=== PATIENT | male | born 1955 | race Caucasian/White ===

== ENCOUNTER 2016-05-16 08:19 | Day surgery (SDC) | payer BC ==
[~2016-05-16 08:19] MED LIST: ALPRAZOLAM1 MG PO; FISH OIL600 MG PO; LOVASTATIN10 M1 PO; MULTIPLE VITAMIN PO; VITAMIN B COMPLE1 PO; VITAMIN D-31000 UNIT PO
--- NOTE | 2016-05-16 12:28 | Provider's Discharge Care Plan ---
Problem, Goal, Plan Problem List 1. Acute abdominal pain 2. Diverticulosis
--- NOTE | 2016-05-16 12:28 | Provider's Discharge Care Plan ---
Problem, Goal, Plan Problem List 1. Acute abdominal pain 2. Diverticulosis
[2016-05-16 13:05] VITALS: BP 128/88
--- NOTE | 2016-05-28 09:46 | OPERATIVE REPORT ---
DATE OF SURGERY: 05/16/2016 SURGEON: Dexter Montesinos MD PREOPERATIVE DIAGNOSIS: 1. Colon cancer risk POSTOPERATIVE DIAGNOSES: 1. Polyp of ileocecal valve 2. Diverticulosis PROCEDURE PERFORMED: 1. Colonoscopy with forceps polypectomy ANESTHESIA: Total IV general. INDICATIONS: The patient is a 61-year-old man undergoing screening colonoscopy. SURGICAL TECHNIQUE: The patient was taken to the endoscopy suite, where total IV general was administered and the patient was placed in the left lateral decubitus position. A well-lubricated colonoscope was advanced the length colon under direct vision. There were a few diverticula seen in the sigmoid colon. The ileocecal valve was reached and on the upper surface of the ileocecal valve, there was a discrete polyp, which was removed with multiple bites of the biopsy forceps and submitted for histopathology. The remainder of the colon was normal including a retroflexed view of the rectum and the patient left in good condition.
== END 2016-05-16 13:10 | disposition home or self-care (01) ==
LOC: OR SRH 08:19 → SCU SRH 08:20 → OR SRH 10:45
PROVIDERS: Surgery
PROC: 0DBC8ZX Excision of Ileocecal Valve, Via Natural or Artificial Opening Endoscopic, Diagnostic (ICD-10-PCS; principal; 2016-05-16 10:45)
DX: Z12.11 Encounter for screening for malignant neoplasm of colon (principal); D12.0 Benign neoplasm of cecum; K57.30 Diverticulosis of large intestine without perforation or abscess without bleeding
CPT/HCPCS: 29229; 29240; 50004; 60001; 82944; 83526